=== PATIENT | female | born 1990 | race Two or more races ===

== ENCOUNTER 2022-02-07 10:20 | Observation (INO) | payer MEDICAID ==
[2022-02-07] MEDS ORDERED: PREN1TAB71 OR (13:54)
== END 2022-02-07 14:55 | disposition home or self-care (01) ==
LOC: LDRP 10:20
PROVIDERS: ADMIT Obstetrics & Gynecology; ATTEND Obstetrics & Gynecology
DX: O60.02 Preterm labor without delivery, second trimester (principal); Z3A.20 20 weeks gestation of pregnancy
CPT/HCPCS: 59025; 76815; 81002; G0378

== ENCOUNTER 2023-09-18 14:04 | Inpatient (IN) | payer MEDICAID ==
[~2023-09-18] VITALS: Ht 160 cm; Wt 98.4 kg
[~2023-09-18 14:04] MED LIST: PREN1TAB71 OR
[2023-09-18 14:25] VITALS: BP 135/75; PULSE 90; RESP 18; O2SAT 98
[2023-09-18 15:16] LABS: Basophils # (auto) 0 10 ^3/uL (0-0.2); Hemoglobin 14.3 g/dL (12.2-16.2)
[2023-09-18 15:18] LABS: Basophils % (auto) 0.3 % (0.0-2.0); Eosinophils # (auto) 0.1 10 ^3/uL (0-0.8); Eosinophils % (auto) 0.8 % (0.0-7.0); Hematocrit 42.3 % (36.0-46.0); Lymphocytes # (auto) 2.9 10 ^3/uL (0.4-5.4); Lymphocytes % (auto) 20.5 % (10.0-50.0); Mean Corpuscular Hemoglobin 29.9 pg (28.0-32.0); Mean Corpuscular Hgb Conc. 33.7 g/dL (32.0-36.0); Mean Corpuscular Volume 88.7 fL (80.0-100.0); Monocytes # (auto) 0.9 10 ^3/uL (0-1.3); Monocytes % (auto) 6.2 % (0.0-12.0); Neutrophils # (auto) 10.1 10 ^3/uL (1.6-8.6); Neutrophils % (auto) 72.2 % (37.0-80.0); Red Blood Cells 4.77 10^6/uL (4.0-5.20); Red Cell Distribution Width 13.9 % (11.8-14.3); White Blood Cell 14.1 10^3/uL (4.4-10.8)
[2023-09-18 15:25] LABS: Urine Bacteria FEW /hpf (None Seen); Urine Blood TRACE /uL (Negative); Urine Clarity Clear (Clear); Urine Color Yellow (Yellow); Urine Protein, UAD TRACE (Negative); Urine Specific Gravity 1.028 (1.001-1.035); Urine Urobilinogen Normal (Negative); Urine WBC 9 /hpf (0 - 5); Urine pH 6.5 (5.0-9.0)
[2023-09-18 15:35] LABS: Alanine Aminotransferase 92 U/L (7-40); Albumin 5.1 g/dL (3.2-4.8); Alkaline Phosphatase 98 U/L (46-116); Anion Gap 9 (5-15); Aspartate Aminotransferase 50 U/L (13-40); BUN/Creatinine Ratio 13.6 (10.0-20.0); Bilirubin, Total 0.6 mg/dL (0.2-1.0); Blood Urea Nitrogen 9 mg/dL (9-23); Calcium 10.2 mg/dL (8.7-10.4); Carbon Dioxide 25 mmol/L (20-30); Chloride 101 mmol/L (98-107); Glucose 91 mg/dL (74-106); Lipase 362 U/L (12-53); Sodium 135 mmol/L (136-145); Total Protein 8.2 g/dL (5.7-8.2)
[2023-09-18] MEDS ORDERED: metroNIDAZOLE 500MG/100ML 100 ML IV ONE (16:30)
[2023-09-18] MEDS ORDERED: cefTRIAXone 1GM/50ML D5W 50 ML IV ONE (16:30)
[2023-09-18] MEDS ORDERED: HYDROcodone-ACET 5/325MG TAB PO PRN (18:45)
[2023-09-18] MEDS ORDERED: ONDANSETRON HCL 4 MG/2 ML VIAL IV PRN (18:45)
[2023-09-18] MEDS ORDERED: ACETAMINOPHEN 325 MG TAB PO PRN (18:45)
[2023-09-18] MEDS ORDERED: NITROGLYCERIN 0.4 MG SL TAB SL PRN (18:45)
[2023-09-18] MEDS ORDERED: SODIUM CHLORIDE 0.9% 1,000 ML IV SCH (18:45)
[2023-09-18] MEDS ORDERED: DOCUSATE SOD 100 MG CAP PO PRN (18:45)
[2023-09-18] MEDS ORDERED: MORPHINE SULFATE INJ 2 MG/ml SYRG IV PRN ×2 (18:45)
[2023-09-18] MEDS ORDERED: metroNIDAZOLE 500MG/100ML 100 ML IV SCH (22:00)
[2023-09-19] MEDS ORDERED: cefTRIAXone 1GM/50ML D5W 50 ML IV SCH (09:00)
[2023-09-19] MEDS ORDERED: PANTOPRAZOLE 40 MG/10 ML VIAL INJ IV SCH (10:00)
== END 2023-09-18 19:50 | disposition left against medical advice (07) | DRG 282 ==
LOC: ER 14:04 → OVERFLOW 18:38
PROVIDERS: ADMIT Nurse Practitioner Family; ATTEND Nurse Practitioner Family
DX: K85.90 Acute pancreatitis without necrosis or infection, unspecified (principal); E66.9 Obesity, unspecified; R74.01 Elevation of levels of liver transaminase levels; Z68.38 Body mass index [BMI] 38.0-38.9, adult
CPT/HCPCS: 36415; 74176; 80053; 81001; 81025; 83605; 83690; 85025; 87040; G0378

== ENCOUNTER 2024-09-07 15:15 | Emergency (ER) | payer MEDICAID | END 2024-09-07 20:00 | disposition left against medical advice (07) | LOC: ER 15:19 | DX: R06.02 Shortness of breath (principal); Z53.21 Procedure and treatment not carried out due to patient leaving prior to being seen by health care provider ==

== ENCOUNTER 2025-02-18 00:32 | Emergency (ER) | payer MEDICAID ==
[~2025-02-18] VITALS: Ht 165.1 cm; Wt 85.1 kg
--- NOTE | 2025-02-18 02:07 | ED.PDOC ---
History of Present Illness HPI Comments 35 y/o obese, Irish speaking F, with a Hx of C-sections, presents with c/c of nonradiating, epigastric abdominal pain. Patient endorses on unprovoked and atraumatic onset of pain, yesterday, which has been progressively getting worse since. Denial of any nausea, vomiting, diarrhea, or further acute symptoms. 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 Family History Family History: Unknown Social History Smoker: Non-Smoker Alcohol: Denies ETOH Use Drugs: Denies Drug Use Lives In: Home All Other Systems: Reviewed and Negative (Comprehensive review of systems are negative unless stated in HPI) Physical Exam General Appearance: No Apparent Distress, Obese HEENT: Normal ENT Inspection, Pharynx Normal, TMs Normal Neck: Full Range of Motion, Non-Tender, Normal, Normal Inspection Respiratory: Chest Non-Tender, Lungs Clear, No Accessory Muscle Use, No Respiratory Distress, Normal Breath Sounds Cardiovascular: No Edema, No JVD, No Murmur, No Gallop, Normal Peripheral Pulses, Regular Rate/Rhythm Breast Exam: Deferred Gastrointestinal: Epigastric (tenderness ), No Organomegaly, No Pulsatile Mass, Normal Bowel Sounds, Soft, Tenderness (epigastric region ) Genitalia: Deferred Pelvic: Deferred Rectal: Deferred Extremities: No calf tenderness, Normal capillary refill, Normal inspection, Normal range of motion, Non-tender, No pedal edema Musculoskeletal : Apperance: Normal Neurologic: Alert, 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 Was a procedure done?: No Differential Dx Considerations may include: gastritis, gastroenteritis, GERD, PUD, viral syndrome, cholelithiasis, cholecystitis, among others X-Ray, Labs, Meds, VS Vital Signs Date Time Temp Pulse Resp B/P (MAP) Pulse Ox O2 Delivery O2 Flow Rate FiO2 02/18/25 04:41 99.2 62 18 140/83 (102) 98 99.2 02/18/25 02:58 62 16 98 Room Air* 0 21 02/18/25 02:53 98.7 55 16 130/97 (108) 99 98.7 02/18/25 00:33 99.4 67 16 156/97 100 99.4 Lab Test 02/18/25 01:50 Range/Units White Blood Count 11.7 H 4.4-10.8 10^3/uL Red Blood Count 4.47 4.0-5.20 10^6/uL Hemoglobin 13.3 12.2-16.2 g/dL Hematocrit 38.7 36.0-46.0 % Mean Corpuscular Volume 86.6 80.0-100.0 fL Mean Corpuscular Hemoglobin 29.8 28.0-32.0 pg Mean Corpuscular Hemoglobin Concent 34.4 32.0-36.0 g/dL Red Cell Distribution Width 13.8 11.8-14.3 % Platelet Count 527 H 140-450 10^3/uL Mean Platelet Volume 6.8 L 6.9-10.8 fL Neutrophils (%) (Auto) 69.0 37.0-80.0 % Lymphocytes (%) (Auto) 23.3 10.0-50.0 % Monocytes (%) (Auto) 6.1 0.0-12.0 % Eosinophils (%) (Auto) 0.9 0.0-7.0 % Basophils (%) (Auto) 0.7 0.0-2.0 % Neutrophils # (Auto) 8.1 1.6-8.6 10 ^3/uL Lymphocytes # (Auto) 2.7 0.4-5.4 10 ^3/uL Monocytes # (Auto) 0.7 0-1.3 10 ^3/uL Eosinophils # (Auto) 0.1 0-0.8 10 ^3/uL Basophils # (Auto) 0.1 0-0.2 10 ^3/uL Nucleated Red Blood Cells 0.0 % Sodium Level 142 136-145 mmol/L Potassium Level 4.0 3.5-5.1 mmol/L Chloride Level 103 98-107 mmol/L Carbon Dioxide Level 26 20-31 mmol/L Anion Gap 13 5-15 Blood Urea Nitrogen 7 L 9-23 mg/dL Creatinine 0.61 0.550-1.02 mg/dL Glomerular Filtration Rate Calc 120 >90 mL/min BUN/Creatinine Ratio 11.5 10.0-20.0 Serum Glucose 105 74-106 mg/dL Calcium Level 9.8 8.7-10.4 mg/dL Total Bilirubin 0.6 0.2-1.0 mg/dL Aspartate Amino Transferase (AST) 51 H 13-40 U/L Alanine Aminotransferase (ALT) 57 H 7-40 U/L Alkaline Phosphatase 76 46-116 U/L Total Protein 8.2 5.7-8.2 g/dL Albumin 5.1 H 3.2-4.8 g/dL Lipase 170 H 12-53 U/L Current Medications Medications (Trade) Dose Ordered Sig/Kimberly Route Start Time Stop Time Status Last Admin Dicyclomine HCl (Bentyl Capsule) 20 mg ONCE ONCE PO 02/18/25 02:00 02/18/25 02:01 DC 02/18/25 03:04 Ondansetron HCl (Zofran Po) 8 mg ONCE ONCE PO 02/18/25 02:00 02/18/25 02:01 DC 02/18/25 03:04 Ketorolac Tromethamine (Toradol Injection) 30 mg ONCE ONCE IM 02/18/25 02:00 02/18/25 02:01 DC 02/18/25 03:03 Time of 1ST Reevaluation: 02:15 Reevaluation 1ST: Unchanged Patient Education/Counseling: Treatment, Need For Follow Up Family Education/Counseling: No Family Present SEPSIS Sepsis Screen Date sepsis recognized/suspect: Feb 18, 2025 Time Sepsis recognized/suspect: 003 Recent Procedure: No On Antibiotic Therapy: No Respiratory Rate >20: No Heart Rate >90: No Temp<36 C (96.8 F) or >38.3 C: No SBP <90 or MAP <65 mmHG: No New Acute Mental Status Change: No Is the patient on CPAP, BIPAP,: No Physician Orders Urinalysis (02/18/25 01:41) Test, Urine (02/18/25 01:41) Gallbladder (02/18/25 01:49) Vital Signs Date Time Temp Pulse Resp B/P (MAP) Pulse Ox O2 Delivery O2 Flow Rate FiO2 02/18/25 04:41 99.2 62 18 140/83 (102) 98 99.2 02/18/25 02:58 62 16 98 Room Air* 0 21 02/18/25 02:53 98.7 55 16 130/97 (108) 99 98.7 02/18/25 00:33 99.4 67 16 156/97 100 99.4 Laboratory Tests Test 02/18/25 01:50 White Blood Count 11.7 10^3/uL (4.4-10.8) H Medications Medications Dose Ordered Sig/Kimberly Route Start Time Stop Time Status Last Admin Dose Admin Dicyclomine HCl 20 mg ONCE ONCE PO 02/18/25 02:00 02/18/25 02:01 DC 02/18/25 03:04 Ketorolac Tromethamine 30 mg ONCE ONCE IM 02/18/25 02:00 02/18/25 02:01 DC 02/18/25 03:03 Ondansetron HCl 8 mg ONCE ONCE PO 02/18/25 02:00 02/18/25 02:01 DC 02/18/25 03:04 Departure 1 Departure Time of Disposition: 05:09 Impression: Primary Impression: Acute abdominal pain Disposition: 07 LEFT AGAINST MEDICAL ADVICE Condition: Fair Discharged With: Self Critical Care Note Critical Care Time?: No Stability Stability form required: No Heart Score Heart Score: Heart Score Response (Comments) Value History N/A 0 EKG N/A 0 Age N/A 0 Risk Factors N/A 0 Troponin N/A 0 Total 0 I personally scribed for IFEANYI PRATT MD ([email or web address]) on 02/18/25 at 02:07. Electronically submitted by Eduardo Evans [email or web address]). IFEANYI PRATT MD Feb 18, 2025 02:07
[2025-02-18 02:16] LABS: Hemoglobin 13.3 g/dL (12.2-16.2)
[2025-02-18 02:17] LABS: Hematocrit 38.7 % (36.0-46.0); Mean Corpuscular Hemoglobin 29.8 pg (28.0-32.0); Mean Corpuscular Volume 86.6 fL (80.0-100.0); Nucleated Red Blood Cells % 0.0 %
[2025-02-18 02:33] LABS: Anion Gap 13 (5-15); BUN/Creatinine Ratio 11.5 (10.0-20.0); Bilirubin, Total 0.6 mg/dL (0.2-1.0); Calcium 9.8 mg/dL (8.7-10.4); Carbon Dioxide 26 mmol/L (20-31); Chloride 103 mmol/L (98-107); Glucose 105 mg/dL (74-106); Potassium 4.0 mmol/L (3.5-5.1); Sodium 142 mmol/L (136-145); Total Protein 8.2 g/dL (5.7-8.2)
[2025-02-18 02:35] LABS: Alanine Aminotransferase 57 U/L (7-40); Albumin 5.1 g/dL (3.2-4.8); Blood Urea Nitrogen 7 mg/dL (9-23); Lipase 170 U/L (12-53)
[2025-02-18 02:38] LABS: Alkaline Phosphatase 76 U/L (46-116)
[2025-02-18 02:58] VITALS: PULSE 62; RESP 16; O2SAT 98
[2025-02-18] MEDS: KETOROLAC TROMETH 30 MG/ML 1ML VIAL IM ONE (03:03)
[2025-02-18] MEDS: DICYCLOMINE HCL 10 MG CAP PO ONE (03:04)
[2025-02-18] MEDS: ONDANSETRON ODT 4 MG TAB PO ONE (03:04)
[2025-02-18 04:41] VITALS: BP 140/83; PULSE 62; RESP 18; TEMP 99.2; O2SAT 98
== END 2025-02-18 05:08 | disposition left against medical advice (07) ==
LOC: ER 00:32
DX: R10.84 Generalized abdominal pain (principal); Z98.890 Other specified postprocedural states
CPT/HCPCS: 36415; 80053; 83690; 85025; 96372; 99283; J0500; J1885; Q0162

== ENCOUNTER 2025-02-19 11:20 | Inpatient (IN) | payer MEDICAID ==
[~2025-02-19] VITALS: Ht 152.4 cm; Wt 83.5 kg
--- NOTE | 2025-02-19 11:41 | ED.PDOC ---
GI ASSESSMENT HPI Comments 35 y/o F, presents to the ED for CC of abdominal pain. Patient states, she has been experiencing epigastric abdominal pain with associated nausea/vomiting x2days. Patient reports, being seen at [facility] on Tuesday (02/17/25), for SS and being unable to complete ultrasound imaging d/t leaving the hospital. At this time patient c/o 8/10 pain to her epigastric area. Patient denies fever, chills, constipation, diarrhea, or hematemesis. No other symptoms or modifying factors are present at this time. Chief Complaint: Abdominal Pain Time Seen by MD: 11:30 Primary Care Provider: [facility] Reviewed Notes: Nurses Notes, Medications, Allergies Allergies: Coded Allergies: NO KNOWN ALLERGIES (Unverified , 05/20/22) Home Meds Reported Medications Vit W/ Ferrous Fumara (PNV PLUS MULTIVI) Plus Tab, 1 OR, TAB 02/07/22 Information Source: Patient Mode of Arrival: Ambulatory Timing: Days Duration: Since onset Prehospital treatment: None Quality: None Vomitus: Watery Stool: Normal Severity: Moderate Recent: None Recent Hx of: None Pain Location: Epigastric Modifying Factors: Nothing Associated sign and symptoms: Nausea, Vomiting, Abdominal Pain Past Medical History PAST MEDICAL HISTORY: Denies 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 ORNAMENTAL METAL ERECTOR APPRENTICE Hx Family History Family History: Unknown Social History Smoker: Non-Smoker Alcohol: Denies ETOH Use Drugs: Denies Drug Use Lives In: Home Constitutional: denies: chills, diaphoresis, fatigue, fever, malaise, sweats, weakness, others EENTM: denies: blurred vision, double vision, ear bleeding, ear discharge, ear drainage, ear pain, ear ringing, eye pain, eye redness, hearing loss, mouth pain, mouth swelling, nasal discharge, nose bleeding, nose congestion, nose pain, photophobia, tearing, throat pain, throat swelling, voice changes, others Respiratory: denies: cough, hemoptysis, orthopnea, SOB at rest, shortness of breath, SOB with excertion, stridor, wheezing, others Cardiovascular: denies: chest pain, dizzy spells, diaphoresis, Dyspnea on exertion, edema, irregular heart beat, left arm pain, lightheadedness, palpitations, PND, syncope, others Gastrointestinal: reports: abdominal pain, nausea, vomiting; denies: abdomen distended, blood streaked bowels, constipated, diarrhea, dysphagia, difficulty swallowing, hematemesis, melena, poor appetite, poor fluid intake, rectal bleeding, rectal pain, others Genitourinary: denies: abnormal vagina bleeding, burning, dyspareunia, dysuria, flank pain, frequency, hematuria, incontinence, pain, , vagina discharge, urgency, others Neurological: denies: dizziness, fainting, headache, left sided numbness, left sided weakness, numbness, paresthesia, pre-existing deficit, right sided numbness, right sided weakness, seizure, speech problems, tingling, tremors, weakness, others Musculoskeletal: denies: back pain, gout, joint pain, joint swelling, muscle pain, muscle stiffness, neck pain, others Integumetry: denies: bruises, change in color, change in hair/nails, dryness, laceration, lesions, lumps, rash, wounds, others Allergic/Immunocompromised: denies: Difficulty Healing, Frequent Infections, Hives, Itching, others Hematologic/Lymphatic: denies: anemia, blood clots, easy bleeding, easy bruising, swollen glands, others Endocrine: denies: excessive hunger, excessive sweating, excessive thirst, excessive urination, flushing, intolerance to cold, intolerance to heat, unexplained weight gain, unexplained weight loss, others Psychiatric: denies: anxiety, bipolar disorder, depression, hopeless, panic disorder, schizophrenia, sleepless, suicidal, others All Other Systems: Reviewed and Negative Physical Exam General Appearance: Moderate Distress HEENT: Normal ENT Inspection, Pharynx Normal, TMs Normal Neck: Full Range of Motion, Non-Tender, Normal, Normal Inspection Respiratory: Chest Non-Tender, Lungs Clear, No Accessory Muscle Use, No Respiratory Distress, Normal Breath Sounds Cardiovascular: No Edema, No JVD, No Murmur, No Gallop, Normal Peripheral Pulses, Regular Rate/Rhythm Breast Exam: Deferred Gastrointestinal: No Organomegaly, Non Tender, No Pulsatile Mass, Normal Bowel Sounds, Soft Genitalia: Deferred Pelvic: Deferred Rectal: Deferred Extremities: No calf tenderness, Normal capillary refill, Normal inspection, Normal range of motion, Non-tender, No pedal edema Musculoskeletal : Apperance: Normal Neurologic: Alert, software testing specialist II-XII nml as Tested, No Motor Deficits, Normal Affect, Normal Mood, No Sensory Deficits Cerebellar Function: Normal Reflexes: Normal Skin: Dry, Normal Color, Warm Peripheral Pulses: 3+ Radial (R), 3+ Radial (L) Lymphatic: No Adenopathy Was a procedure done? Was a procedure done?: No GI differential Dx Differential Diagnosis: Cholecystitis, Constipation, Diverticular disease, Esophagitis, Gastritis/PUD, Gastroenteritis, Inflammatory BD, Bacterial, Viral X-Ray, Labs, Meds, VS Vital Signs Date Time Temp Pulse Resp B/P (MAP) Pulse Ox O2 Delivery O2 Flow Rate FiO2 02/19/25 13:05 76 16 100 Room Air* 0 21 02/19/25 13:05 98.4 76 16 154/111 (125) 100 98.4 02/19/25 11:21 98.5 79 18 148/88 98 98.5 Lab Test 02/19/25 12:01 02/19/25 11:50 Range/Units Urine Color Yellow Yellow Urine Clarity Turbid H Clear Urine pH 6.5 5.0-9.0 Urine Specific [place] 1.019 1.001-1.035 Urine Protein Trace H Negative Urine Ketones Trace Negative Urine Blood Trace H Negative /uL Urine Nitrite Negative Negative Urine Bilirubin Negative Negative Urine Urobilinogen Normal Negative mg/dL Urine Leukocyte Esterase Negative Negative /uL Urine RBC 5 0 - 4 /hpf Urine Microscopic WBC < 1 0-5 /HPF Urine Squamous Epithelial Cells Few <5 /hpf Urine Bacteria None seen None Seen /hpf Urine Hyaline Casts Few 0 - 2 /lpf Urine Mucus Few None Seen Urine Glucose Normal Normal mg/dL White Blood Count 10.1 4.4-10.8 10^3/uL Red Blood Count 4.49 4.0-5.20 10^6/uL Hemoglobin 13.6 12.2-16.2 g/dL Hematocrit 39.0 36.0-46.0 % Mean Corpuscular Volume 87.0 80.0-100.0 fL Mean Corpuscular Hemoglobin 30.2 28.0-32.0 pg Mean Corpuscular Hemoglobin Concent 34.7 32.0-36.0 g/dL Red Cell Distribution Width 13.9 11.8-14.3 % Platelet Count 548 H 140-450 10^3/uL Mean Platelet Volume 6.9 6.9-10.8 fL Neutrophils (%) (Auto) 73.7 37.0-80.0 % Lymphocytes (%) (Auto) 20.5 10.0-50.0 % Monocytes (%) (Auto) 4.5 0.0-12.0 % Eosinophils (%) (Auto) 0.8 0.0-7.0 % Basophils (%) (Auto) 0.5 0.0-2.0 % Neutrophils # (Auto) 7.4 1.6-8.6 10 ^3/uL Lymphocytes # (Auto) 2.1 0.4-5.4 10 ^3/uL Monocytes # (Auto) 0.5 0-1.3 10 ^3/uL Eosinophils # (Auto) 0.1 0-0.8 10 ^3/uL Basophils # (Auto) 0.1 0-0.2 10 ^3/uL Nucleated Red Blood Cells 0.2 % Sodium Level 142 136-145 mmol/L Potassium Level 4.0 3.5-5.1 mmol/L Chloride Level 103 98-107 mmol/L Carbon Dioxide Level 27 20-31 mmol/L Anion Gap 12 5-15 Blood Urea Nitrogen < 5 L 9-23 mg/dL Creatinine 0.63 0.550-1.02 mg/dL Glomerular Filtration Rate Calc 119 >90 mL/min BUN/Creatinine Ratio 7.9 L 10.0-20.0 Serum Glucose 101 74-106 mg/dL Calcium Level 9.6 8.7-10.4 mg/dL Total Bilirubin 0.8 0.2-1.0 mg/dL Aspartate Amino Transferase (AST) 195 H 13-40 U/L Alanine Aminotransferase (ALT) 152 H 7-40 U/L Alkaline Phosphatase 76 46-116 U/L Total Protein 8.5 H 5.7-8.2 g/dL Albumin 5.3 H 3.2-4.8 g/dL Lipase 77 H 12-53 U/L Patient alert. Complaining of right upper quadrant pain. Vitals stable. Answering questions. Was seen here few days ago for similar symptom for which she was done labs but did not wait for her ultrasound. Review her previous visit. Lipase elevated. Explained to the patient. Continue monitoring. [address] [address] Ph: [phone] DIAGNOSTIC IMAGING Diagnostic Imaging Report : [id number] Signed PATIENT: WENDIE ALMANZAR ACCT: [id number] UNIT: [id number] : 1990 LOC: ER ROOM / BED: / AGE / SEX: 35 / F ADM STATUS: REG ER SERVICE 1136 ORDERING PHYSICIAN: AMARILIS CARDOZO MD PROCEDURE(s): GBUS - GALLBLADDER REASON: maria e ORDER NUMBER(s): [id number], ACCESSION NUMBER(s): [id number] INDICATION: maria e TECHNIQUE: Multiple real-time sonographic images were obtained of the right upper quadrant. COMPARISON: None FINDINGS: The liver demonstrates increased echotexture without focal mass lesions. The liver measures 19 cm. There is no intrahepatic or extrahepatic ductal dilatation. The common duct measures 0.5 cm. The gallbladder is without evidence of stone or sludge. The gallbladder wall measures 0.1 cm and is within normal limits. The right kidney measures 11.3 cm. The right kidney is normal in contour, size, and shape. The echogenicity is normal. There is no hydronephrosis. The pancreas is not well visualized due to overlying bowel gas. IMPRESSION: No sonographic evidence of gallstones or acute cholecystitis. Hepatic steatosis and hepatomegaly. ATED BY: SHARAN JORDAN MD DICTATED DATE/TIME: 02/19/251214 SIGNED BY: SHARAN JORDAN MD SIGNED DATE/TIME: 02/19/251214 CC: Time of 1ST Reevaluation: 12:00 Reevaluation 1ST: Unchanged Patient Education/Counseling: Diagnosis, Treatment Family Education/Counseling: No Family Present SEPSIS Sepsis Screen Date sepsis recognized/suspect: Feb 19, 2025 Time Sepsis recognized/suspect: 1121 Recent Procedure: No On Antibiotic Therapy: No Respiratory Rate >20: No Heart Rate >90: No Temp<36 C (96.8 F) or >38.3 C: No SBP <90 or MAP <65 mmHG: No New Acute Mental Status Change: No Is the patient on CPAP, BIPAP,: No Physician Orders Gallbladder (02/19/25 11:36) Nm Hida Scan (02/19/25 14:15) Sodium Chloride 0.9% (02/19/25 14:15) Test, Urine (02/19/25 14:29) Vital Signs Date Time Temp Pulse Resp B/P (MAP) Pulse Ox O2 Delivery O2 Flow Rate FiO2 02/19/25 13:05 76 16 100 Room Air* 0 21 02/19/25 13:05 98.4 76 16 154/111 (125) 100 98.4 02/19/25 11:21 98.5 79 18 148/88 98 98.5 Laboratory Tests Test 02/19/25 11:50 White Blood Count 10.1 10^3/uL (4.4-10.8) Departure 1 Departure Time of Disposition: 11:42 Impression: Primary Impression: Acute abdominal pain Additional Impression: Acute pancreatitis Qualified Codes: K85.90 - Acute pancreatitis without necrosis or infection, unspecified Disposition: ADMITTED INPATIENT Admit to: Med Surg Condition: Guarded Critical Care Note Critical Care Time?: Yes (90 min-critical care time only) Stability Stability form required: No Heart Score Heart Score: Heart Score Response (Comments) Value History N/A 0 EKG N/A 0 Age N/A 0 Risk Factors N/A 0 Troponin N/A 0 Total 0 I personally scribed for AMARILIS CARDOZO MD ([email or web address]) on 02/19/25 at 11:41. Electronically submitted by Anne Dumas ([email or web address]). I personally scribed for AMARILIS CARDOZO MD ([email or web address]) on 02/19/25 at 12:37. Electronically submitted by Anne Dumas ([email or web address]). AMARILIS CARDOZO MD Feb 19, 2025 11:41
[2025-02-19 12:17] LABS: Hemoglobin 13.6 g/dL (12.2-16.2)
--- NOTE | 2025-02-19 12:17 | DVH ---
INDICATION: maria e TECHNIQUE: Multiple real-time sonographic images were obtained of the right upper quadrant. COMPARISON: None FINDINGS: The liver demonstrates increased echotexture without focal mass lesions. The liver measure s 19 cm. There is no intrahepatic or extrahepatic ductal dilatation. The common duct measures 0.5 cm. The gallbladder is without evidence of stone or sludge. The gallbladder wall measures 0.1 cm and is w ithin normal limits. The right kidney measures 11.3 cm. The right kidney is normal in contour, size, and shape. The echoge nicity is normal. There is no hydronephrosis. The pancreas is not well visualized due to overlying bowel gas. IMPRESSION: No sonographic evidence of gallstones or acute cholecystitis. Hepatic steatosis and hepatomegaly.
[2025-02-19 12:18] LABS: Hematocrit 39.0 % (36.0-46.0); Mean Corpuscular Hemoglobin 30.2 pg (28.0-32.0); Mean Corpuscular Volume 87.0 fL (80.0-100.0); Nucleated Red Blood Cells % 0.2 %
[2025-02-19 12:25] LABS: Urine Protein, UAD TRACE (Negative)
[2025-02-19 12:31] LABS: Alkaline Phosphatase 76 U/L (46-116); Anion Gap 12 (5-15); Bilirubin, Total 0.8 mg/dL (0.2-1.0); Calcium 9.6 mg/dL (8.7-10.4); Carbon Dioxide 27 mmol/L (20-31); Chloride 103 mmol/L (98-107); Glucose 101 mg/dL (74-106); Potassium 4.0 mmol/L (3.5-5.1); Sodium 142 mmol/L (136-145)
[2025-02-19 12:32] LABS: Alanine Aminotransferase 152 U/L (7-40); Albumin 5.3 g/dL (3.2-4.8); BUN/Creatinine Ratio 7.9 (10.0-20.0); Blood Urea Nitrogen < 5 mg/dL (9-23); Lipase 77 U/L (12-53); Total Protein 8.5 g/dL (5.7-8.2)
[2025-02-19 13:05] VITALS: PULSE 76; RESP 16; O2SAT 100
[2025-02-19] MEDS: ONDANSETRON HCL 4 MG/2 ML VIAL IV ONE (16:11)
[2025-02-19] MEDS: MORPHINE SULFATE 4 MG/ML SYR/VIAL IV ONE (16:11)
--- NOTE | 2025-02-19 16:11 | DVH ---
Procedure: NM NM HIDA SCAN Exam Date: 02/19/2025 02:56 PM Clinical History: gallbladder Comparison Study: 09/18/2023 Nuclear Medicine Hepatobiliary Scan. Technique: Following the intravenous administration of 4.5 mCi of technetium 99m labeled Choletec multiple plana r abdominal planar images were obtained in anterior projection in 5 minute intervals for45 minutes . Right lateral images were obtained at 50 minutes after injection. Findings: The liver appears grossly normal in size. There is no abnormal persistence of the cardiac or blood po ol activity. Gallbladder visualized at approximately 30 minutes. Impression: Patent cystic duct.
[2025-02-19] MEDS: SODIUM CHLORIDE 0.9% 1,000 ML IV ONE ×2 (16:12→17:45)
[2025-02-19] MEDS ORDERED: ONDANSETRON HCL 4 MG/2 ML VIAL IV PRN (17:30)
[2025-02-19] MEDS ORDERED: MORPHINE SULFATE 4 MG/ML SYR/VIAL IV PRN (17:30)
[2025-02-19] MEDS: PANTOPRAZOLE 40 MG/10 ML VIAL INJ IV ONE (17:47)
--- NOTE | 2025-02-19 18:30 | DVH ---
Indication: epigastric abd pain, suspected panreatitis Technique: CT axial images of the abdomen and pelvis are obtained without contrast. Coronal and sagit moni reformats were obtained. Radiation Dose Information: CTDI volume is 18.14 mGy. Dose-length product is 986.13 mGy*cm Comparison: CT CT AB PEL WO CON-NO ORAL OR IV on DOS: 09/18/23 FINDINGS: There is limited interpretation of the abdomen and pelvis without administration of intravenous contr ast. Lung bases demonstrate no pleural effusion. Adrenal glands, spleen unremarkable in shape. Mild prominence of the pancreatic head region. Hepatic steatosis. No CT evidence for cholelithiasis. No hydronephrosis/ nephrolithiasis. Stomach is partially distended. Small bowel loops are normal in caliber. Moderate volume stool in the colon. Normal appendix. Intrauterine device. Partially calcified leiomyoma measuring 3.7 cm no free pelvic fluid. No inguinal lymphadenopathy. There is no aggressive osseous process. Mild to moderate thoracolumbar degenerative disease most pron ounced at L5-S1 IMPRESSION: Limited evaluation without contrast. Mild prominence of the peripancreatic head region could represent pancreatitis although a underlying pancreatic mass/ lesion can not be ruled out. Recommend MRI abdomen with and without contrast, pancr eatic mass protocol to evaluate for pancreatitis, pancreatic mass Hepatic steatosis. Hydropic/ distended gallbladder. Intrauterine device. 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 Other findings as described
--- NOTE | 2025-02-19 22:11 | DVHHPRES ---
History of Present Illness Resident Creating Document: ABI FITZGERALD RESIDENT History of Present Illness Patient is a 35 y/o female with no significant medical h/o came to the ER with the chief complaint of RUQ/epigastric pain for the last 3 days. Pain worsened on eating food since tuesday, had associated nausea and vomiting which resolved today in the afternoon after the patient was in the hospital. Initial imaging with GB ultrasound showed no cholelithiasis or cholecystitis, but with due to high clinical suspicion NM hida scan was done which showed patient cystic duct. With the pain in the epigastric region, and lipase being mildly elevated, CT abd was ordered with the suspicion of pancreatitis. Patient denies fever, chills, constipation, diarrhea, or hematemesis. No significant past medical history Surgical history: C section No home medication Review of Systems Review of Systems patient reports that abd pain has improved and denies any nausea and vomiting. No fever or chills Allergies: Coded Allergies: NO KNOWN ALLERGIES (Unverified , 05/20/22) Medications Current Medications Medications Dose Ordered Sig/Kimberly Route Start Time Stop Time Status Last Admin Dose Admin Morphine Sulfate 2 mg Q6HPRN PRN IV 02/19/25 17:30 Acetaminophen/ Hydrocodone Bitart 1 tab Q6HPRN PRN PO 02/19/25 17:30 Pantoprazole Sodium 40 mg DAILY IV 02/20/25 10:00 Ondansetron HCl 4 mg Q6HPRN PRN IV 02/19/25 17:30 Exam Vital Signs Vital Signs Date Time Temp Pulse Resp B/P (MAP) Pulse Ox O2 Delivery O2 Flow Rate FiO2 02/19/25 17:02 97.7 63 18 152/89 (110) 98 97.7 02/19/25 13:05 Room Air* 0 21 Exam Gen - no pallor, no icterus, no cyanosis, no clubbing, no LAD, no edema . Skin - Patients skin is warm and dry. HEENT - normocephalic, atraumatic, moist mucous membranes. Neck - full ROM, no LAD, no JVD Pulmonary - B/L equal breath sounds, no crackles, no wheezing, no stridor. cardiovascular - regular S1,S2 heard, no added sounds, no murmurs heard. peripheral pulses normal radial 2+, pedal 2+. capillary refill normal <2 secs. GI - soft abdomen with mild tenderness to palpation in the epigastric and the RUQ. no hepatospleenomegaly. Bowel sounds normoactive Neurological - Patient is A/O X 3 . Bilateral upper extremity strength 5/5, bilateral lower extremity strength 5/5, no facial droop, normal speech, no tremor, no sensory deficiets. Labs/Xrays Labs Test 02/19/25 12:01 02/19/25 11:50 Range/Units Urine Color Yellow Yellow Urine Clarity Turbid H Clear Urine pH 6.5 5.0-9.0 Urine Specific [place] 1.019 1.001-1.035 Urine Protein Trace H Negative Urine Ketones Trace Negative Urine Blood Trace H Negative /uL Urine Nitrite Negative Negative Urine Bilirubin Negative Negative Urine Urobilinogen Normal Negative mg/dL Urine Leukocyte Esterase Negative Negative /uL Urine RBC 5 0 - 4 /hpf Urine Microscopic WBC < 1 0-5 /HPF Urine Squamous Epithelial Cells Few <5 /hpf Urine Bacteria None seen None Seen /hpf Urine Hyaline Casts Few 0 - 2 /lpf Urine Mucus Few None Seen Urine Glucose Normal Normal mg/dL Urine Test Negative Negative White Blood Count 10.1 4.4-10.8 10^3/uL Red Blood Count 4.49 4.0-5.20 10^6/uL Hemoglobin 13.6 12.2-16.2 g/dL Hematocrit 39.0 36.0-46.0 % Mean Corpuscular Volume 87.0 80.0-100.0 fL Mean Corpuscular Hemoglobin 30.2 28.0-32.0 pg Mean Corpuscular Hemoglobin Concent 34.7 32.0-36.0 g/dL Red Cell Distribution Width 13.9 11.8-14.3 % Platelet Count 548 H 140-450 10^3/uL Mean Platelet Volume 6.9 6.9-10.8 fL Neutrophils (%) (Auto) 73.7 37.0-80.0 % Lymphocytes (%) (Auto) 20.5 10.0-50.0 % Monocytes (%) (Auto) 4.5 0.0-12.0 % Eosinophils (%) (Auto) 0.8 0.0-7.0 % Basophils (%) (Auto) 0.5 0.0-2.0 % Neutrophils # (Auto) 7.4 1.6-8.6 10 ^3/uL Lymphocytes # (Auto) 2.1 0.4-5.4 10 ^3/uL Monocytes # (Auto) 0.5 0-1.3 10 ^3/uL Eosinophils # (Auto) 0.1 0-0.8 10 ^3/uL Basophils # (Auto) 0.1 0-0.2 10 ^3/uL Nucleated Red Blood Cells 0.2 % Sodium Level 142 136-145 mmol/L Potassium Level 4.0 3.5-5.1 mmol/L Chloride Level 103 98-107 mmol/L Carbon Dioxide Level 27 20-31 mmol/L Anion Gap 12 5-15 Blood Urea Nitrogen < 5 L 9-23 mg/dL Creatinine 0.63 0.550-1.02 mg/dL Glomerular Filtration Rate Calc 119 >90 mL/min BUN/Creatinine Ratio 7.9 L 10.0-20.0 Serum Glucose 101 74-106 mg/dL Calcium Level 9.6 8.7-10.4 mg/dL Total Bilirubin 0.8 0.2-1.0 mg/dL Aspartate Amino Transferase (AST) 195 H 13-40 U/L Alanine Aminotransferase (ALT) 152 H 7-40 U/L Alkaline Phosphatase 76 46-116 U/L Total Protein 8.5 H 5.7-8.2 g/dL Albumin 5.3 H 3.2-4.8 g/dL Lipase 77 H 12-53 U/L SEPSIS Sepsis Screen Date sepsis recognized/suspect: Feb 19, 2025 Time Sepsis recognized/suspect: 1305 Recent Procedure: No On Antibiotic Therapy: No Respiratory Rate >20: No Heart Rate >90: No Temp<36 C (96.8 F) or >38.3 C: No SBP <90 or MAP <65 mmHG: No New Acute Mental Status Change: No Is the patient on CPAP, BIPAP,: No Physician Orders Nm Hida Scan (02/19/25 14:15) Admit (02/19/25 17:20) Ct Ab Pel Wo Con-No Oral Or Iv (02/19/25 17:20) Full Liq Diet (02/19/25 Dinner) Complete Blood Count (02/20/25 04:00) Comprehensive Metabolic Panel (02/20/25 04:00) Sodium Chloride 0.9% (02/19/25 17:30) Hydrocodone-Acet 5/325mg Tab ([place] 5/32 (02/19/25 17:30) Pantoprazole (Protonix) (02/20/25 10:00) Ondansetron Hcl (Zofran) (02/19/25 17:30) Morphine Sulfate Injection (02/19/25 17:30) Vital Signs Date Time Temp Pulse Resp B/P (MAP) Pulse Ox O2 Delivery O2 Flow Rate FiO2 02/19/25 17:02 97.7 63 18 152/89 (110) 98 97.7 02/19/25 16:41 59 16 148/92 02/19/25 16:11 59 16 171/54 Laboratory Tests Test 02/19/25 11:50 White Blood Count 10.1 10^3/uL (4.4-10.8) Medications Medications Dose Ordered Sig/Kimberly Route Start Time Stop Time Status Last Admin Dose Admin Morphine Sulfate 4 mg ONCE ONCE IV 02/19/25 14:15 02/19/25 14:16 DC 02/19/25 16:11 4 MG Ondansetron HCl 4 mg ONCE ONCE IV 02/19/25 14:15 02/19/25 14:16 DC 02/19/25 16:11 4 MG Pantoprazole Sodium 40 mg ONCE ONCE IV 02/19/25 17:30 02/19/25 17:38 DC 02/19/25 17:47 40 MG Sodium Chloride 1,000 ml @ 100 mls/hr Q10H ONCE IV 02/19/25 17:30 02/20/25 03:29 02/19/25 17:45 100 MLS/HR Sodium Chloride 1,000 ml @ 1,000 mls/hr Q1H ONCE IV 02/19/25 14:15 02/19/25 15:14 DC 02/19/25 16:12 1,000 MLS/HR Assessment/Plan Assessment/Plan Acute intractable abdominal pain possible pancreatitis with pancreatic mass Transaminitis Hepatic steatosis Distended Gallbladder - CT abdomen showed Mild prominence of the peripancreatic head region could represent pancreatitis although a underlying pancreatic mass/ lesion - IV fluids - pain control - MRI abd with pancreatic protocol pending PUD prophylaxis: protonix Goals of care discussed with the patient for over 31 mins. Full code Plan discussed with Plan discussed with: Patient My Orders Orders - ABI FITZGERALD RESIDENT Procedure Category Date Status Time Admit ADMIT 02/19/25 Transmitted 17:20 Ct Ab Pel Wo Con-No CT 02/19/25 Resulted Oral Or Iv 17:20 Full Liq Diet DIET 02/19/25 Transmitted Dinner Complete Blood Count LAB 02/20/25 Verified 04:00 Comprehensive LAB 02/20/25 Verified Metabolic Panel 04:00 Sodium Chloride 0.9% PHA 02/19/25 In Process 17:30 Hydrocodone-Acet PHA 02/19/25 In Process 5/325mg Tab ([place] 17:30 Pantoprazole PHA 02/20/25 In Process (Protonix) 10:00 Ondansetron Hcl PHA 02/19/25 In Process (Zofran) 17:30 Morphine Sulfate PHA 02/19/25 In Process Injection 17:30 Date of Service: Feb 19, 2025 Billing Provider: GHADA STEIN MD Common Visit Codes: [id number] INP/OBS CARE (MOD) Secondary Visit Codes: [id number] CARE PLAN ADDL 30MIN ABI FITZGERALD RESIDENT Feb 19, 2025 22:11 GHADA STEIN MD Feb 26, 2025 20:11
[2025-02-19] MEDS: HYDROcodone-ACET 5/325MG TAB PO PRN (22:33)
[2025-02-19 23:02] VITALS: BP 142/93; PULSE 56; RESP 19; TEMP 98.4; O2SAT 95
[2025-02-20 01:00] VITALS: BP 144/94; PULSE 58; RESP 20; TEMP 98.4; O2SAT 98
[2025-02-20 05:00] VITALS: BP 130/94; PULSE 72; RESP 19; TEMP 99.4; O2SAT 97
[2025-02-20 05:59] LABS: Nucleated Red Blood Cells % 0.0 %
[2025-02-20 06:01] LABS: Hematocrit 35.9 % (36.0-46.0); Hemoglobin 12.5 g/dL (12.2-16.2); Mean Corpuscular Hemoglobin 30.2 pg (28.0-32.0); Mean Corpuscular Volume 86.5 fL (80.0-100.0)
[2025-02-20 06:19] LABS: Albumin 4.6 g/dL (3.2-4.8); Alkaline Phosphatase 66 U/L (46-116); Anion Gap 13 (5-15); Calcium 9.0 mg/dL (8.7-10.4); Carbon Dioxide 25 mmol/L (20-31); Chloride 104 mmol/L (98-107); Glucose 92 mg/dL (74-106); Sodium 142 mmol/L (136-145); Total Protein 7.4 g/dL (5.7-8.2)
[2025-02-20 06:20] LABS: Bilirubin, Total 0.8 mg/dL (0.2-1.0)
[2025-02-20 06:36] LABS: Alanine Aminotransferase 143 U/L (7-40); BUN/Creatinine Ratio 8.9 (10.0-20.0); Blood Urea Nitrogen < 5 mg/dL (9-23); Potassium 3.5 mmol/L (3.5-5.1)
[2025-02-20 08:00] VITALS: PULSE 80; RESP 18
[2025-02-20 08:39] VITALS: BP 139/87; PULSE 62; RESP 18; TEMP 98.2; O2SAT 96
[2025-02-20] MEDS: PANTOPRAZOLE 40 MG/10 ML VIAL INJ IV SCH (09:38)
--- NOTE | 2025-02-20 13:36 | DVHPNRES ---
Progress Note Date Seen: Feb 20, 2025 Resident Creating Document: ARVIN NATHAN Medical Necessity Reason Pt with a Central, PICC or Fol: No Subjective Review of Systems Patient is a 35 y/o female with no significant medical h/o came to the ER with the chief complaint of RUQ/epigastric pain for the last 3 days. Pain worsened on eating food since tuesday, had associated nausea and vomiting which resolved today in the afternoon after the patient was in the hospital. Initial imaging with GB ultrasound showed no cholelithiasis or cholecystitis, but with due to high clinical suspicion NM hida scan was done which showed patient cystic duct. With the pain in the epigastric region, and lipase being mildly elevated, CT abd was ordered with the suspicion of pancreatitis. Patient denies fever, chills, constipation, diarrhea, or hematemesis. 02/20- Patient presents with nausea but no current abdominal pain; she reports a 4-month history of abdominal discomfort with a recent 2-day episode of excruciating pain, lipase level is 77, denies weight loss, and abdominal MRI has been ordered. Past surgical history: C section Home medications: No home medication Past Hospitalization: No history of admission Social & Personal history: denies smoking, alcohol, drug use Allergies: No known allergy Patient seen and examined at bedside. Patient is alert and oriented to time, place person and responding to all questions. Eyes: No Pain, No Vision change, No Conjunctivae inflammation, No Eyelid inflammation, No Other, No Redness ENT: No Ear pain, No Ear discharge, No Nose pain, No Nose discharge, No Nose congestion, No Mouth pain, No Mouth swelling, No Throat pain, No Throat swelling, No Other Cardiovascular: No Chest Pain, No Palpitations, No Orthopnea, No Paroxysmal No Dyspnea, No Edema, No Lt Headedness, No Other Respiratory: No Cough, No Dry, No Shortness of breath, No SOB with exertion, No Wheezing, No Hemoptysis, No Pleuritic Pain, No Sputum, No Other Gastrointestinal: Nausea, No Vomiting, No Abdominal Pain, No Diarrhea, No Constipation, No Melena, No Hematochezia, No Other Genitourinary: No Dysuria, No Frequency, No Incontinence, No Hematuria, No Retention, No Other Musculoskeletal: No other, No neck pain, No shoulder pain, No arm pain, No back pain, No hand pain, No leg pain, No foot pain Skin: No Rash, No Lesions, No Jaundice, No Bruising, No Other Objective vital signs Vital Sign Date Time Temp Pulse Resp B/P (MAP) Pulse Ox O2 Delivery O2 Flow Rate FiO2 02/20/25 08:39 98.2 62 18 139/87 (104) 96 98.2 02/20/25 08:00 Room Air* 0 21 Total Intake and Output 02/19/25 02/19/25 02/20/25 15:00 23:00 07:00 Intake Total 150 ml Balance 150 ml medications Current Medications Medications Dose Ordered Sig/Kimberly Route Start Time Stop Time Status Last Admin Dose Admin Morphine Sulfate 2 mg Q6HPRN PRN IV 02/19/25 17:30 Acetaminophen/ Hydrocodone Bitart 1 tab Q6HPRN PRN PO 02/19/25 17:30 02/20/25 09:34 1 TAB Pantoprazole Sodium 40 mg DAILY IV 02/20/25 10:00 02/20/25 09:38 40 MG Ondansetron HCl 4 mg Q6HPRN PRN IV 02/19/25 17:30 Examination Gen - no pallor, no icterus, no cyanosis, no clubbing, no LAD, no edema . Skin - Patients skin is warm and dry. HEENT - normocephalic, atraumatic, moist mucous membranes. Neck - full ROM, no LAD, no JVD Pulmonary - B/L equal breath sounds, no crackles, no wheezing, no stridor. cardiovascular - regular S1,S2 heard, no added sounds, no murmurs heard. peripheral pulses normal radial 2+, pedal 2+. capillary refill normal <2 secs. GI - soft abdomen with mild tenderness to palpation in the epigastric and the RUQ. no hepatospleenomegaly. Bowel sounds normoactive Neurological - Patient is A/O X 3 . Bilateral upper extremity strength 5/5, bilateral lower extremity strength 5/5, no facial droop, normal speech, no tremor, no sensory deficiets. laboratory and microbiology Laboratory Tests 02/20/25 04:46 Test 02/20/25 04:46 Range/Units Serum Glucose 92 74-106 mg/dL Labs and/or images reviewed: Labs reviewed by me, Image(s) reviewed by me Problem List/Assessment/Plan Problem List/Assessment/Plan Acute intractable abdominal pain possible pancreatitis with pancreatic mass Transaminitis Hepatic steatosis Distended Gallbladder - CT abdomen showed Mild prominence of the peripancreatic head region could represent pancreatitis although a underlying pancreatic mass/ lesion - Gall Bladder Scan Nuclear Medicine (HIDA SCAN): Patent cystic duct. - Gall Bladder Ultrasound: No sonographic evidence of gallstones or acute cholecystitis. Hepatic steatosis and hepatomegaly. - MRI abdomen pending - IV fluids - pain control with Morphine 2 mg and Noro 5/325 MG - pancreatic protocol pending - Zofran PUD prophylaxis: protonix 40mg Goals of care: Full code, discussed for >16 minutes on 02/20/25 Plan discussed with patient Plan discussed with Dr. Vega Plan discussed with: Patient Date of Service: Feb 20, 2025 Billing Provider: GHADA VEGA MD Common Visit Codes: [id number] INP/OBS CARE(HIGH) ARVIN NATHAN RESIDENT Feb 20, 2025 13:36 GHADA VEGA MD Feb 26, 2025 20:11
[2025-02-20 13:41] VITALS: BP 117/82; PULSE 56; RESP 20; TEMP 98.1; O2SAT 97
--- NOTE | 2025-02-20 14:18 | DVH ---
MRI Abdomen, without and with IV Contrast Exam Date: 02/20/2025 12:09 PM Comparison: CT CT AB PEL WO CON-NO ORAL OR IV on DOS: 02/19/25, US GALLBLADDER on DOS: 02/19/25, CT CT AB PEL WO CON-NO ORAL OR IV on DOS: 09/18/23 History: pnacreatic mass protocol Technique: Multisequence multiplanar MRI images were obtained of the abomen. Findings: Liver: Mild hepatic steatosis. Hepatomegaly. Spleen: Unremarkable. Pancreas: The pancreas is normal in appearance without focal lesions. Gallbladder and ducts: Distended gallbladder. The cystic duct, right and left hepatic ducts, common h epatic duct, and common bile ducts are unremarkable. The pancreatic duct is within normal limits. Adrenal glands: Unremarkable. Kidneys: Normal enhancement without suspicious lesions or hydronephrosis. Few punctate cysts in the l eft lower pole kidney. Visualized bowel: Grossly unremarkable. Vasculature: Unremarkable. Lymphadenopathy: No evidence for lymphadenopathy. Ascites: Absent. Musculoskeletal: Bone marrow signal is normal. IMPRESSION: Hepatic steatosis. Hepatomegaly. Distended gallbladder. No pancreatic mass.
[2025-02-20] MEDS: GADOTERATE MEG 10 MMOL/20ml INJ (0.5MMOL/ml) IV ONE (14:25)
[2025-02-20 17:00] VITALS: BP 138/86; PULSE 69; RESP 18; TEMP 98.2; O2SAT 97
[2025-02-20] MEDS ORDERED: PANT40TA2 PO (18:32)
--- NOTE | 2025-02-26 20:14 | DVHDSRES ---
Discharge Summary Date of Admission Resident Creating Document: ARVIN NATHAN RESIDENT Feb 19, 2025 at 17:20 Date of Discharge: Feb 20, 2025 Labs/Diagnostic Data: Laboratory Results Test 02/20/25 04:46 02/19/25 12:01 White Blood Count 9.0 10^3/uL (4.4-10.8) Red Blood Count 4.15 10^6/uL (4.0-5.20) Hemoglobin 12.5 g/dL (12.2-16.2) Hematocrit 35.9 % (36.0-46.0) Mean Corpuscular Volume 86.5 fL (80.0-100.0) Mean Corpuscular Hemoglobin 30.2 pg (28.0-32.0) Mean Corpuscular Hemoglobin Concent 35.0 g/dL (32.0-36.0) Red Cell Distribution Width 13.3 % (11.8-14.3) Platelet Count 448 10^3/uL (140-450) Mean Platelet Volume 6.9 fL (6.9-10.8) Neutrophils (%) (Auto) 60.8 % (37.0-80.0) Lymphocytes (%) (Auto) 31.0 % (10.0-50.0) Monocytes (%) (Auto) 5.8 % (0.0-12.0) Eosinophils (%) (Auto) 1.8 % (0.0-7.0) Basophils (%) (Auto) 0.6 % (0.0-2.0) Neutrophils # (Auto) 5.5 10 ^3/uL (1.6-8.6) Lymphocytes # (Auto) 2.8 10 ^3/uL (0.4-5.4) Monocytes # (Auto) 0.5 10 ^3/uL (0-1.3) Eosinophils # (Auto) 0.2 10 ^3/uL (0-0.8) Basophils # (Auto) 0.1 10 ^3/uL (0-0.2) Nucleated Red Blood Cells 0.0 % Sodium Level 142 mmol/L (136-145) Potassium Level 3.5 mmol/L (3.5-5.1) Chloride Level 104 mmol/L (98-107) Carbon Dioxide Level 25 mmol/L (20-31) Anion Gap 13 (5-15) Blood Urea Nitrogen < 5 mg/dL (9-23) Creatinine 0.56 mg/dL (0.550-1.02) Glomerular Filtration Rate Calc 123 mL/min (>90) BUN/Creatinine Ratio 8.9 (10.0-20.0) Serum Glucose 92 mg/dL (74-106) Calcium Level 9.0 mg/dL (8.7-10.4) Total Bilirubin 0.8 mg/dL (0.2-1.0) Aspartate Amino Transferase (AST) 134 U/L (13-40) Alanine Aminotransferase (ALT) 143 U/L (7-40) Alkaline Phosphatase 66 U/L (46-116) Total Protein 7.4 g/dL (5.7-8.2) Albumin 4.6 g/dL (3.2-4.8) Lipase 63 U/L (12-53) CA 19-9 Antigen 15 U/mL (0-35) Urine Color Yellow (Yellow) Urine Clarity Turbid (Clear) Urine pH 6.5 (5.0-9.0) Urine Specific [place] 1.019 (1.001-1.035) Urine Protein Trace (Negative) Urine Ketones Trace (Negative) Urine Blood Trace /uL (Negative) Urine Nitrite Negative (Negative) Urine Bilirubin Negative (Negative) Urine Urobilinogen Normal mg/dL (Negative) Urine Leukocyte Esterase Negative /uL (Negative) Urine RBC 5 /hpf (0 - 4) Urine Microscopic WBC < 1 /HPF (0-5) Urine Squamous Epithelial Cells Few /hpf (<5) Urine Bacteria None seen /hpf (None Seen) Urine Hyaline Casts Few /lpf (0 - 2) Urine Mucus Few (None Seen) Urine Glucose Normal mg/dL (Normal) Urine Test Negative (Negative) Other Laboratory Tests 02/20/25 04:46 Brief Hx & Hospital Course: Starla Amaya is a 35-year-old female with no significant past medical history who presented to the emergency department on 02/19/2025 with a 3-day history of right upper quadrant and epigastric abdominal pain, worsened by food intake. She also experienced nausea and vomiting, which resolved after hospital admission. She denied fever, chills, diarrhea, constipation, hematemesis, or weight loss. Her surgical history includes a prior section. She does not take any home medications and has no known allergies. She denies tobacco, alcohol, or drug use. Initial evaluation included laboratory studies showing mildly elevated lipase and transaminitis, raising concern for possible pancreatitis. Imaging began with a right upper quadrant ultrasound, which revealed hepatic steatosis and hepatomegaly but no evidence of gallstones or acute cholecystitis. Due to persistent symptoms and clinical suspicion, a HIDA scan was performed and confirmed a patent cystic duct. A non-contrast CT of the abdomen showed mild prominence of the pancreatic head, suggesting possible pancreatitis or a pancreatic mass, prompting further evaluation with an MRI abdomen using a pancreatic mass protocol. The MRI ruled out any pancreatic lesion and confirmed hepatic steatosis, hepatomegaly, and a distended gallbladder. The patient was managed conservatively with intravenous fluids, antiemetics (Zofran), and analgesics (Morphine and [place]), and her symptoms improved during hospitalization. She remained hemodynamically stable, tolerated oral intake, and was discharged with plans for outpatient follow-up and continued monitoring of hepatic findings and abdominal symptoms. Examination Eyes: No Pain, No Vision change, No Conjunctivae inflammation, No Eyelid inflammation, No Other, No Redness ENT: No Ear pain, No Ear discharge, No Nose pain, No Nose discharge, No Nose congestion, No Mouth pain, No Mouth swelling, No Throat pain, No Throat swelling, No Other Cardiovascular: No Chest Pain, No Palpitations, No Orthopnea, No Paroxysmal No Dyspnea, No Edema, No Lt Headedness, No Other Respiratory: No Cough, No Dry, No Shortness of breath, No SOB with exertion, No Wheezing, No Hemoptysis, No Pleuritic Pain, No Sputum, No Other Gastrointestinal: Nausea, No Vomiting, No Abdominal Pain, No Diarrhea, No Constipation, No Melena, No Hematochezia, No Other Genitourinary: No Dysuria, No Frequency, No Incontinence, No Hematuria, No Retention, No Other Musculoskeletal: No other, No neck pain, No shoulder pain, No arm pain, No back pain, No hand pain, No leg pain, No foot pain Skin: No Rash, No Lesions, No Jaundice, No Bruising, No Other Operations or Procedures PATIENT: STARLA AMAYA ACCT: [id number] UNIT: [id number] : 1990 LOC: [facility] ROOM / BED: [facility] / B AGE / SEX: 35 / F ADM STATUS: ADM IN SERVICE [id number] ORDERING PHYSICIAN: ABI FITZGERALD RESIDENT PROCEDURE(s): MRABWWO - MRI ABDOMEN WLAND WO REASON: ORDER NUMBER(s): [id number], ACCESSION NUMBER(s): [id number] MRI Abdomen, without and with IV Contrast Exam Date: 02/20/2025 12:09 PM Comparison: CI CI AB PEL WO CON-NO ORAL OR IV on DOS: 02/19/25, US GALLBLADDER on DOS: 02/19/25, CI CIAB PEL WO CON-NO ORAL OR IV on DOS: 09/18/23 History: pracreatic mass protocol Technique: [facility] Multisequence multiplanar MRI images were obtained of the abomen. Findings: Liver: Mild hepatic steatosis. Hepatomegaly. Spleen: Unremarkable. Pancreas: The pancreas is normal in appearance without focal lesions. Gallbladder and ducts: Distended gallbladder. The cystic duct, right and left hepatic ducts, common hepatic duct, and common bile ducts are unremarkable. The pancreatic duct is within normal limits. 7/ 150 179L2 Adrenal glands: Unremarkable. 28 Kidneys: Normal enhancement without suspicious lesions or hydronephrosis. Few punctate cysts in the left lower pole kidney. Visualized bowel: Grossly unremarkable. Vasculature: Unremarkable. Lymphadenopathy: No evidence for lymphadenopathy. Ascites: Absent. Musculoskeletal: Bone marrow signal is normal. IMPRESSION: Hepatic steatosis. Hepatomegaly. [facility] Distended gallbladder. No pancreatic mass. ON: epigastric abd pain, suspected panreatitis ORDER NUMBER(S): [id number], ACCESSION NUMBER(S): [id number] Indication: epigastric abd pain, suspected panreatitis Technique: CI axial images off the abdomen and pelvis are obtained without contrast. Coronal and sagittal reformats were obtained. Radiation Dose Information: 47.150,171.27 CTDI volume is 18.14 mGy. Dose-length product is 986.13 mGy*em [facility] Comparison: CI CI AB PEL WO CON-NO ORAL OR IV on DOS: 09/18/23 FINDINGS: There is limited interpretation of the abdomen and pelvis without administration of intravenous contrast. Lung bases demonstrate no pleural effusion. Adrenal glands, spleen unremarkable in shape. Mild prominence of the pancreatic head region. Hepatic steatosis. No CI evidence for cholelithiasis. No hydronephrosis/ nephrolithiasis. Stomach is partially distended. Small bowel loops are normal in caliber. Moderate volume stool in the colon. Normal appendix. Intrauterine device. 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 No inguinal lymphadenopathy. There is no aggressive osseous process. Mild to moderate thoracolumbar degenerative disease most pronounced at L5-S1 IMPRESSION: Limited evaluation without contrast. Mild prominence of the peripancreatic head region could represent pancreatitis although a underlying pancreatic mass/ lesion can not be ruled out. MRI abdomen with and without contrast, pancreatic mass protocol to evaluate for pancreatitis, pancreatic mass Hepatic steatosis. [facility] Hydropic/ distended gallbladder. Intrauterine device. 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 Other findings as described ENT: STARLA AMAYA ACCT: [id number] UNIT: [id number] : 1990 LOC: ER ROOM / BED: / AGE / SEX: 35 / F ADM STATUS: REG ER SERVICE [id number] ORDERING PHYSICIAN: AMARILIS CARDOZO MD PROCEDURE(s): GBNM - NM HIDA SCAN REASON: gallbladder ORDER NUMBER(s): [id number], ACCESSION NUMBER(s): [id number] Procedure: NM NM HIDA SCAN Exam Date: 02/19/2025 02:56 PM Clinical History: gallbladder 47.150.171.27 Comparison Study: 09/18/2023 [facility] Nuclear Medicine Hepatobiliary Scan. Technique: Following the intravenous administration of 4.5 mCi of technetium 99m labeled Choletec multiple planar abdominal planar images were obtained in anterion projection in 5 minute intervals for45 minutes . Right lateral images were obtained at 50 minutes after injection. Findings: The liver appears grossly normal in size. There is no abnormal persistence of the cardiac or blood pool activity. Gallbladder visualized at approximately 30 minutes. Impression: [facility] Patent cystic duct. Electronicallv Sioned by: Tr Ruiz at 02/19/2025 16:12:09 PM PATIENT: STARLA AMAYA ACCT: [id number] UNIT: [id number] : 1990 LOC: ER ROOM / BED: / [facility] AGE / SEX: 35 / F ADM STATUS: REG ER SERVICE [id number] ORDERING PHYSICIAN: AMARILIS CARDOZO MD PROCEDURE(s): GBUS - GALLBLADDER REASON: maria e ORDER NUMBER(S): [id number], ACCESSION NUMBER(S): [id number] INDICATION: maria e TECHNIQUE: Multiple real-time sonographic images were obtained of the right upper quadrant. COMPARISON: None FINDINGS: The liver demonstrates increased echotexture without focal mass lesions. The liver measures 19 cm. There is no intrahepatic or extrahepatic ductal dilatation. The common duct measures 0.5 cm. The gallbladder is without evidence of stone or sludge. The gallbladder wall measures 0.1 cm and is within normal limits. The right kidney measures 11.3 cm. The right kidney is normal in contour, size, and shape. The echogenicity is normal. There is no hydronephrosis The pancreas is not well visualized due to overlying bowel gas. IMPRESSION: ?No sonographic evidence of gallstones or acute cholecystitis. Hepatic steatosis and hepatomegaly. [facility] ATED BY: SHARAN JORDAN MD DICTATED DATE/TIME: 02/19/25 1215 Condition at Discharge: Stable Final Diagnosis/Problems List Acute pancreatitis ruled out pancreatic mass possible acute gastritis Distended Gallbladder without cholelithiasis Hepatic steatosis transaminitis, trending down Discharge Disposition: Home Discharge Instruct/Medications Diet: See Comment Diet comment: continue on soft diet on discharge and advance as tolerated avoid alcohol Activity: No Restrictions, As Tolerated Follow Up/Referral: Follow up with the PCP in one week Follow up in the D/c clinic in one week Medications: protonix 40mg daily for 14 days Scheduled Pantoprazole Sodium Sesquihydr (Protonix), 40 MG PO QAM Miscellaneous Medications Vit W/ Ferrous Fumara (Pnv Plus Multivi), 1 OR, (Reported) Discharge Statement: "Patient was advised to return to the ER or call 911 if any headaches, dizziness, shortness of breath, chest pain, abdominal pain, bleeding, fevers, or worsening of medical condition. Patient was counseled about treatment plan, medications, possible side effects, patientverbalized understanding. All questions were answered to the best of my ability. This discharge took greater then 30 minutes in planning, reviewing documentation, counseling the patient, and discussing with other team members." ASSESSMENT ASSESSMENT Assessment Acute pancreatitis ruled out pancreatic mass possible acute gastritis Distended Gallbladder without cholelithiasis Hepatic steatosis transaminitis, trending down Date of Service: Feb 20, 2025 Billing Provider: GHADA STEIN MD Common Visit Codes: [id number] DISCH DAY >30min ARVIN NATHAN RESIDENT Feb 26, 2025 20:14 GHADA STEIN MD Feb 26, 2025 20:32
== END 2025-02-20 19:47 | disposition home or self-care (01) | DRG 282 ==
LOC: ER 11:20 → OVERFLOW 17:20 → WEST WING 21:52
PROVIDERS: ADMIT Internal Medicine Geriatric Medicine; ATTEND Internal Medicine Geriatric Medicine
DX: K85.90 Acute pancreatitis without necrosis or infection, unspecified (principal); R16.0 Hepatomegaly, not elsewhere classified; K29.00 Acute gastritis without bleeding; K76.0 Fatty (change of) liver, not elsewhere classified; K82.8 Other specified diseases of gallbladder; R74.01 Elevation of levels of liver transaminase levels; Z98.891 History of uterine scar from previous surgery; Z79.899 Other long term (current) drug therapy
CPT/HCPCS: 36415; 74176; 74183; 76705; 78226; 80053; 81001; 81025; 83690; 85025; 86301; 99291; 99292; G0378; J2405; J2470